=== PATIENT | female | born 1950 | race Caucasian/White ===

== ENCOUNTER 2021-03-15 06:18 | Day surgery (SDC) | payer OTHER | END 2021-03-15 11:06 | disposition home or self-care (01) | LOC: AMB-ENDOS 06:18 | PROVIDERS: ATTEND Surgery | DX: D12.4 Benign neoplasm of descending colon (principal); D12.5 Benign neoplasm of sigmoid colon; D12.8 Benign neoplasm of rectum; Z20.822 Contact with and (suspected) exposure to COVID-19 ==

== ENCOUNTER 2022-05-08 07:59 | Outpatient (CLI) | payer OTHER | END 2022-05-08 08:01 | disposition home or self-care (01) | LOC: SONOGRAMA 07:59 | PROVIDERS: ATTEND Pathology Anatomic Pathology & Clinical Pathology | DX: E04.1 Nontoxic single thyroid nodule (principal) ==